=== PATIENT | female | born 1960 | race Caucasian/White ===

== ENCOUNTER 2021-12-24 06:31 | Day surgery (SDC) | payer BC ==
[~2021-12-24] VITALS: Ht 172.7 cm; Wt 88.5 kg
[~2021-12-24 06:31] MED LIST: BACTRIM DS1 TAB PO; DIVIGEL; EFFEXOR XR75 MG PO; EFFEXOR37.5 MG PO; ELESTRIN TD; FLEXERIL PO; HYDROCHLOROT12.5 MG PO; HYDROCHLOROT25 MG PO; HYDROCHLOROTH12.5 MG PO; KEFLEX500 MG PO; LISINOP/HCTZ1 TA2 PO; LISINOPRIL20 MG PO; LORTAB 5/3255 MG PO; LORTAB 7.5-3251 TAB PO; LOSARTAN POTASS25 MG PO; NAPROSYN500 MG PO; SILVADENE1 % TOP; SYNTHROID112 MCG OR; SYNTHROID112 MCG PO; TIZANIDINE4 MG PO; [UNRECOGNIZED DRUG - OTHER] TOP
[2021-12-24 09:23] VITALS: BP 151/87
== END 2021-12-24 09:20 | disposition home or self-care (01) | DRG 395 ==
LOC: ENDO 06:31 → ORM 08:45 → ENDO 09:20
PROVIDERS: ATTEND Surgery
PROC: 0DBH8ZX Excision of Cecum, Via Natural or Artificial Opening Endoscopic, Diagnostic (ICD-10-PCS; principal; 2021-12-24)
PROC: 0DBN8ZX Excision of Sigmoid Colon, Via Natural or Artificial Opening Endoscopic, Diagnostic (ICD-10-PCS; 2021-12-24)
PROC: 0DBP8ZX Excision of Rectum, Via Natural or Artificial Opening Endoscopic, Diagnostic (ICD-10-PCS; 2021-12-24)
DX: D12.0 Benign neoplasm of cecum (principal); K62.1 Rectal polyp; K57.30 Diverticulosis of large intestine without perforation or abscess without bleeding; K64.8 Other hemorrhoids; K64.4 Residual hemorrhoidal skin tags; I10 Essential (primary) hypertension; E03.9 Hypothyroidism, unspecified; F17.210 Nicotine dependence, cigarettes, uncomplicated

== ENCOUNTER 2022-07-30 15:41 | Emergency (ER) | payer BC ==
[~2022-07-30] VITALS: Ht 172.7 cm; Wt 200.0 kg
[2022-07-30 15:48] VITALS: BP 157/77
[2022-07-30 16:00] VITALS: BP 145/81
[2022-07-30 16:06] LABS: BASO% 0.5 % (0-3); EOS% 0.9 % (0-8); IMMATURE GRANULOCYTES 0.2 % (0.0-5.0); LYMPH% 30.4 % (15-41); MEAN CORPUSCULAR HGB 32.3 pG CALC (26.0-32.0); MEAN CORPUSCULAR HGB CONC 32.8 g/dL CAL (32.0-36.0); MONO% 14.2 % (2-13); NEUT# 2.35 thou/uL (2.00-7.15); NEUT% 53.8 % (42-76); RED BLOOD COUNT 4.67 mill/uL (4.20-5.60); RED CELL DISTRI WIDTH 12.2 % (11.5-15.5)
[2022-07-30 16:07] LABS: HEMOGLOBIN 15.1 g/dl (12.0-16.0); MEAN CELL VOLUME 98.5 fL CALC (80.0-100.0)
[2022-07-30 16:26] LABS: ALBUMIN 4.6 g/dL (3.2-5.0); ALKALINE PHOSPHATASE 58 u/l (38-126); ANION GAP 13 (6-22 (CALC)); BILIRUBIN, TOTAL 0.2 mg/dL (0.02-1.3); BUN 13 mg/dL (8-23); BUN/CREATININE RATIO 18 (12-20 (CALC)); CARBON DIOXIDE 28 mmol/l (22-30); CHLORIDE 101 mmol/l (95-108); CREATININE 0.7 mg/dL (0.5-1.0); GFR FOR AFR.AMER. > 60 ML/MIN (>=60 (CALC)); GFR OTHER RACES > 60 ML/MIN (>=60 (CALC)); POTASSIUM 3.6 mmol/l (3.5-5.1); SGOT/AST 33 u/l (9-36); SODIUM 139 mmol/l (137-146); TOTAL PROTEIN 7.9 g/dL (6.3-8.2)
[2022-07-30 17:01] VITALS: BP 130/76
[2022-07-30 18:00] VITALS: BP 138/86
[2022-07-30 18:03] VITALS: BP 138/86
== END 2022-07-30 18:14 | disposition left against medical advice (07) | DRG 313 ==
LOC: ED 15:41
PROVIDERS: Family Medicine
DX: R07.9 Chest pain, unspecified (principal); I10 Essential (primary) hypertension; F17.210 Nicotine dependence, cigarettes, uncomplicated